=== PATIENT | female | born 1995 | race Two or more races ===

== ENCOUNTER 2025-06-28 15:53 | Outpatient (RCR) | payer OTHER, SELFPAY | END 2025-07-17 23:59 | disposition home or self-care (01) | LOC: LAB 15:53 | PROVIDERS: Visit Provider Obstetrics & Gynecology | DX: O20.9 Hemorrhage in early pregnancy, unspecified (principal); N92.6 Irregular menstruation, unspecified | CPT/HCPCS: 36415; 84702 ==